=== PATIENT | male | born 1995 | race Two or more races ===

== ENCOUNTER 2016-12-03 11:21 | Emergency (ER) | payer MEDICAID, OTHER ==
[2016-12-03 11:26] VITALS: BP 111/80; PULSE 94; RESP 18; TEMP 99.3; O2SAT 94
--- NOTE | 2016-12-03 12:12 | EDPHY ---
H & P Time Seen by Provider: 12/03/16 11:31 HPI/ROS: CHIEF COMPLAINT: Sore throat, cough, rhinorrhea, itchy eyes HISTORY OF PRESENT ILLNESS: 21-year-old male who presents to the emergency department by private vehicle with itchy watery eyes for the last several days. He has had ongoing cough and rhinorrhea for the last 2 weeks. Denies chest pain or difficulty breathing. Denies abdominal pain. Denies foreign body sensation in his eyes or reported trauma. No double vision or blurry vision. No mattering or purulent drainage. No chest pain or difficulty breathing. No fevers or chills. He did get a flu shot this past fall. Denies abdominal pain or vomiting. REVIEW OF SYSTEMS: Constitutional: No fever, no chills. Eyes: Itchy, watery eyes. No double or blurry vision. ENT: sore throat. Rhinorrhea, nasal congestion Respiratory: cough, no shortness of breath. Cardiac: No chest pain. Gastrointestinal: No abdominal pain, vomiting or diarrhea. Genitourinary: No dysuria. Musculoskeletal: No neck or back pain. Skin: No rashes. Neurological: No headache. Past Medical/Surgical History: Negative Social History: Single Smoking Status: Never smoked Physical Exam: General Appearance: Alert, no distress. Temperature 37.4, 94% on room air. Eyes: Pupils equal and round. Extraocular motions are all intact. No conjunctival injection noted. No exudate. Watery drainage noted to both eyes. ENT: Mouth: Mucous membranes moist. No posterior pharyngeal injection or exudate noted. Respiratory: No wheezing, rhonchi, or rales, lungs are clear to auscultation. Cardiovascular: Regular rate and rhythm. Gastrointestinal: Abdomen is soft and nontender, no masses, no rebound or guarding, bowel sounds normal. Neurological: Alert and oriented x 3, cranial nerves II through XII grossly intact Skin: Warm and dry, no rashes. Musculoskeletal: Nontender to palpate along the cervical, thoracic or lumbar spine. Neck is supple. Extremities: Full range of motion and no peripheral edema. Psychiatric: Patient is oriented X 3, there is no agitation. Constitutional: Initial Vital Signs Temperature (C) 37.4 C 12/03/16 11:23 Heart Rate 94 12/03/16 11:23 Respiratory Rate 18 12/03/16 11:23 Blood Pressure 111/80 12/03/16 11:23 O2 Sat (%) 94 12/03/16 11:23 O2 Delivery Mode Room Air Allergies/Adverse Reactions: No Known Allergies Allergy (Unverified 12/03/16 11:26) Home Medications: Medication Instructions Recorded NK [No Known Home Meds] 12/03/16 Medical Decision Making ED Course/Re-evaluation: 21-year-old male presents to the emergency department with rhinorrhea, nasal congestion, sneezing and itchy watery eyes. Clinically I think this patient has allergic rhinitis and allergic conjunctivitis. I do not think antibiotics are indicated. I doubt influenza. The patient has been symptomatic for over 2 weeks. I do not think testing or treating influenza would be helpful. I recommended [id number] Claritin or other antihistamine as well as Flonase nasal spray. He was instructed to return if any change in symptoms or if he feels worse in any way. Differential Diagnosis: Including but not limited to allergic rhinitis, influenza, viral upper respiratory infection, strep pharyngitis Departure - Departure Disposition: Home, Routine, Self-Care Clinical Impression: Allergic conjunctivitis and rhinitis Qualifiers: Laterality: bilateral Qualified Code(s): H10.13 - Acute atopic conjunctivitis, bilateral Upper respiratory infection Qualifiers: URI type: unspecified URI Qualified Code(s): J06.9 - Acute upper respiratory infection, unspecified Condition: Good Instructions: Upper Respiratory Infection (ED), Allergic Rhinitis (ED), Allergies (ED) Additional Instructions: Use [id number] Claritin or Denisse or Zyrtec daily for at least 1 week. [id number] Flonase nasal spray to help with congestion. Use this daily for at least 1 week to see if this may help with your nasal congestion and runny nose. Return if he develops fever, difficulty breathing or swallowing, or if you feel worse in any way. Referrals: Rosa Gaffney MD [Primary Care Provider] - 2-3 days, if not improved
== END 2016-12-03 12:17 | disposition home or self-care (01) ==
DX: J06.9 Acute upper respiratory infection, unspecified (principal); H10.13 Acute atopic conjunctivitis, bilateral